=== PATIENT | male | born 1980 | race Two or more races ===

== ENCOUNTER 2024-06-03 14:03 | Emergency (ER) | payer OTHER ==
[~2024-06-03] VITALS: Ht 175.3 cm; Wt 79.4 kg
== END 2024-06-03 16:09 | disposition home or self-care (01) ==
LOC: ER 14:05
DX: K40.90 Unilateral inguinal hernia, without obstruction or gangrene, not specified as recurrent (principal)

== ENCOUNTER 2024-09-27 05:25 | Day surgery (SDC) | payer OTHER ==
[2024-09-22 10:53] VITALS: BP 159/89
[~2024-09-27] VITALS: Ht 175.3 cm; Wt 79.4 kg
[2024-09-27] MEDS ORDERED: ENOXAPARIN SODIUM 40 MG/0.4 ML SYRINGE SUBCUTANEO ONE (07:10)
[2024-09-27] MEDS ORDERED: CEFTRIAXONE SODIUM 2,000 MG VIAL ONE (07:11)
[2024-09-27] MEDS ORDERED: BUPIVACAINE HCL/MPF 0.5% 30ML VIAL ONE (07:11)
[2024-09-27] MEDS ORDERED: METRONIDAZOLE/SODIUM CHLORIDE 500 MG/100 ML PIGGYBACK IV ONE (08:00)
[2024-09-27] MEDS ORDERED: NEURONTIN300 MG PO (09:36)
[2024-09-27] MEDS ORDERED: POLY119PG PO (09:36)
[2024-09-27] MEDS ORDERED: PERCOCET 5-3251 EACH PO (09:36)
[2024-09-27] MEDS ORDERED: CELEBREX200MG PO (09:36)
== END 2024-09-27 11:25 | disposition home or self-care (01) ==
LOC: CIR.AMB 05:25
PROVIDERS: ATTEND Surgery
DX: K40.90 Unilateral inguinal hernia, without obstruction or gangrene, not specified as recurrent (principal)
CPT/HCPCS: 49650; C1781